=== PATIENT | female | born 1955 | race Two or more races ===

== ENCOUNTER 2017-05-08 05:07 | Emergency (ER) | payer OTHER ==
[~2017-05-08] VITALS: Ht 149.9 cm; Wt 73.6 kg
[2017-05-08] MEDS ORDERED: ACETAMINOPHEN 500 MG TABLET PO ONE (05:30)
[2017-05-08] MEDS ORDERED: SODIUM CHLORIDE FLUSH 10ML SYR IVF ONE (05:30)
[2017-05-08] MEDS ORDERED: SODIUM CHLORIDE 0.9% 1,000ML IVBOLUS ONE ×2 (05:30)
[2017-05-08] MEDS ORDERED: ONDANSETRON 2MG/ML, 2ML IVPush ONE (06:00)
[2017-05-08] MEDS ORDERED: ONDANSETRON 2MG/ML, 2ML ONE (06:09)
[2017-05-08] MEDS ORDERED: ACETAMINOPHEN 500 MG TABLET ONE (06:09)
[2017-05-08 06:18] LABS: HEMATOCRIT 44.6 % (34.6-47.8); WHITE BLOOD COUNT 11.9 x10^3/uL (3.4-10)
[2017-05-08 06:30] LABS: BLOOD UREA NITROGEN 15 mg/dL (7-18)
[2017-05-08 06:33] LABS: ASPARTATE AMINO TRANSFERASE 20 U/L (15-37)
[2017-05-08 06:35] LABS: PATH.CAST-FLAG NOT PRESENT; SPERM-FLAG NOT PRESENT; SRC-FLAG NOT PRESENT; XTAL-FLAG NOT PRESENT; YLC-FLAG NOT PRESENT
[2017-05-08] MEDS ORDERED: CEFTRIAXONE PMX 1GM/50ML 50 ML ONE (06:50)
[2017-05-08] MEDS ORDERED: CEFTRIAXONE PMX 1GM/50ML 50 ML IVPB ONE (07:00)
[2017-05-08 07:45] VITALS: BP 95/52
== END 2017-05-08 07:49 | disposition home or self-care (01) ==
LOC: ED 05:34
DX: N10 Acute pyelonephritis (principal)
CPT/HCPCS: 36415; 80053; 81001; 83605; 84145; 85025; 87040; 87077; 87086; 93005; 96361; 96365; 96375; 99285; J0696; J2405; J7030; 87186